=== PATIENT | male | born 2000 | race Caucasian/White ===

== ENCOUNTER 2023-09-24 12:59 | Emergency (ER) | payer SELFPAY ==
[~2023-09-24] VITALS: Ht 165.1 cm; Wt 64.0 kg
[2023-09-24 13:01] VITALS: BP 144/93; PULSE 140; RESP 16; TEMP 98.4; O2SAT 95
== END 2023-09-24 15:58 | disposition left against medical advice (07) ==
LOC: ER 12:59
DX: R21 Rash and other nonspecific skin eruption (principal); Z53.21 Procedure and treatment not carried out due to patient leaving prior to being seen by health care provider
CPT/HCPCS: 93005